=== PATIENT | female | born 2000 | race American Indian/Alaskan Native ===

== ENCOUNTER 2021-03-06 11:54 | Emergency (ER) | payer SELFPAY ==
[2021-03-06 12:10] VITALS: BP 119/54
--- NOTE | 2021-03-06 14:13 | Emergency Department Report ---
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 She states that she placed a detox PERRL in her vaginal canal 2 days ago. She denies any pain, vaginal discharge, dysuria/hematuria, or urinary frequency. No abdominal pain or fever/chills or sweats per patient. She states she is feeling well. 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 Absent: erythema Bi-manual exam: Absent: cervical motion tendernes - Neurological Exam Neurological exam: Present: alert, oriented X3 - Psychiatric Psychiatric exam: Present: normal affect, normal mood - Skin Skin exam: Present: warm, dry, intact, normal color. Absent: rash ED Course Vital Signs 03/06/21 12:09 Temperature 98 F Pulse Rate 60 Respiratory 16 Rate Blood Pressure 119/54 [Left] O2 Sat by Pulse 100 Oximetry ED Medical Decision Making - Medical Decision Making 20-year-old -[place] patient presents with complaints of vaginal foreign body. She states that she placed a detox PERRL in her vaginal canal 2 days ago. She denies any pain, vaginal discharge, dysuria/hematuria, or urinary frequency. No abdominal pain or fever/chills or sweats per patient. She states she is feeling well. Vaginal fela removed without difficulty. Patient tolerated procedure well without any immediate complications. 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 Strict return precautions discussed in detail patient verbalized understanding Critical care attestation.: If time is entered above; I have spent that time in minutes in the direct care of this critically ill patient, excluding procedure time. ED Disposition Clinical Impression: Vaginal foreign body Disposition: HOME / SELF CARE / HOMELESS Is pt being admited?: No Condition: Stable Additional Instructions: Please followup with your OBGYN
== END 2021-03-06 14:10 | disposition home or self-care (01) ==
LOC: ED 11:54
DX: T19.2XXA Foreign body in vulva and vagina, initial encounter (principal); X58.XXXA Exposure to other specified factors, initial encounter; Y93.89 Activity, other specified; Y92.89 Other specified places as the place of occurrence of the external cause; Y99.8 Other external cause status
CPT/HCPCS: 99281; 99283